=== PATIENT | female | born 1985 | race Two or more races ===

== ENCOUNTER 2017-09-01 22:52 | Emergency (ER) | payer MEDICAID ==
[~2017-09-01] VITALS: Ht 160 cm; Wt 45.4 kg
[2017-09-01 22:55] VITALS: BP 115/71
[2017-09-02] MEDS ORDERED: IBUPROFEN 600 MG TABLET PO ONE ×2 (01:00→01:03)
[2017-09-02 01:03] LABS: MONOTEST NEGATIVE (NEGATIVE)
== END 2017-09-02 01:27 | disposition home or self-care (01) ==
LOC: ER 22:52
DX: J02.9 Acute pharyngitis, unspecified (principal); Z90.710 Acquired absence of both cervix and uterus
CPT/HCPCS: 36415; 86308; 87070; 87880; 99284; A4606; Z7610; 86403-TC